=== PATIENT | female | born 1950 | race Caucasian/White ===

== ENCOUNTER → 2016-08-23 | Outpatient (CLI) | payer MEDICARE, OTHER ==
[~2016-08-23] MED LIST: ACETAMINOPHEN PO; ACETAMINOPHEN500 M3 PO; ACTOS PO; ACTOSPLUSMET PO; ALBUTEROL MININEB HHN; ALBUTEROL17 GM IH; ALBUTEROL17 GM INH; AMARYL PO; AMIODARONE HCL400 MG PO; AMIODARONE PO; ANTI-DIARRHEAL; ASPIRIN EC81 M1 PO; ASPIRIN PO; ASPIRIN81 M1 PO; ASPIRIN81 MG PO; ASPIRINEC PO; ATIVAN PO; ATIVAN2 M1 PO; ATIVAN2 MG PO; B-12250 MCG PO; BACTROBAN15 GM TOP; BIOTIN PO; BIOTIN300 MCG PO; CENTRUM COMPLE1 EACH PO; COMBIVENT INH14.7 GM INH; COREG PO; COUMADIN5 MG PO; COUMADIN7.5 MG PO; CROMOLYN SODIUM10 ML OU; CYMBALTA PO; CYMBALTA30 MG PO; DARVOCET-N 1001 TAB PO; DDAVP0.2 M1 PO; DESMOPRESSIN A0.2 MG PO; DETROL PO; DICYCLOMINE HCL20 MG PO; DIOVAN HCT 160-1 TAB PO; DIOVAN PO; DIOVAN160 MG PO; DIOVAN320 MG PO; DITROPAN PO; DOXEPIN HCL100 MG PO; DOXEPIN PO; DOXYCYCLINE150 MG PO; ENABLEX15 MG PO; FLOVENT HFA12 GM INH; GLUCOTROL PO; HUMIBID L.1 TAB.SR . PO; HUMULIN 70/30 V10 ML SUBQ; HYDROCODON-ACE1 EAC1 PO; IBUPROFEN PO; IMMODIUM1 MG/5 ML PO; IMODIUM2 MG PO; INDERAL LA160 MG PO; JANUVIA PO; KEFLEX PO; LANSOPRAZOLE30 M1 PO; LEVAQUIN PO; LEVAQUIN750 MG PO; LEVSIN PO; LIPITOR PO; LIPITOR40 MG PO; LOMOTIL TABLET1 TAB; LOMOTIL TABLET1 TAB PO; LOPRESSOR PO; LORTAB 5/500 TA1 TA1 PO; LORTAB 5/500 TA1 TA2 PO; LOTREL 10-40 M1 EACH PO; LOTREL 10/20 MG1 CAP PO; LOTREL 10/40 MG1 CAP PO; LOTREL 10/40 PO; LYRICA PO; METFORMIN PO; MULTI-VITAMIN1 TAB PO; NABUMETONE PO; NABUMETONE500 MG PO; NITROGLYCERIN0.4 MG SL; NIZORAL 2% CREA15 GM TOP; NOVOLIN 70/30 V10 M1 INJ; NOVOLIN 70/30 V10 M1 SQ; NOVOLIN 70/30 V10 M1 SUBQ; NOVOLOG100 U/ML SUBQ; NOVOLOG7030 SUBQ; PREDNISONE PO; PREDNISONE10 MG PO; PREMARIN PO; PREVACID PO; PREVACID15 M1 PO; PROAIR HFA8.5 GM IH; PROAIR HFA8.5 GM INH; PROPRANOLOL HC160 MG PO; PROPRANOLOL PO; PROTONIX PO; RELAFEN500 MG PO; RISACAL-D TABL1 EACH PO; SINGULAIR PO; SPIRIVA18 MCG INH; THERATEARS; VESICARE PO; VESICARE5 MG PO; VICODIN 5/500 T1 TAB PO; VITAMIN D 4001 UDTAB PO; ZESTRIL40 MG PO; [UNRECOGNIZED DRUG - OTHER]
--- NOTE | ~2016-08-23 | ST ---
Unit #: [id number] #: [id number] Patient: GEORGETTE HARRIS [id number] [address] [address] [id number] O MR#: [id number] NAME: GEORGETTE HARRIS : 1950 SEX: F STUDY DATE/TIME: 08/23/2016 UNIT: CN ROOM: STUDY DESCRIPTION: Cardiac stress test. Attending Physician: Generic Doctor Not In System Referring Physician: Generic Doctor Not In System Primary Care Physician: Seferino Zapata D.O. CARDIOLOGY REPORT EXAM Cardiac stress test. PROCEDURE Baseline EKG normal sinus rhythm. Nonspecific ST-T changes. Resting heart rate 74 per minute, blood pressure 152/100. This 66-year-old patient received 0.4 mg of Lexiscan intravenously. During the test no ischemic changes noted. No arrhythmias noted. Blood pressure was stable. IMPRESSION 1. Nondiagnostic EKG during Lexiscan. 2. No arrhythmias noted. 3. Stable blood pressure during the test. 4. Correlate with Cardiolite study. Dictated by... Markus Desir/candy TD: 08/23/2016 14:13 JOB #: [id number] CARDIOLOGY REPORT Page 1 of 1 X Daphne Underwood MD CARDIOLOGY REPORT
--- NOTE | ~2016-08-23 | TH ---
Unit #: [id number] #: [id number] Patient: GEORGETTE HARRIS [id number] [address] [address] [id number] O MR#: [id number] NAME: GEORGETTE HARRIS : 1950 SEX: F STUDY DATE/TIME: 08/23/2016 UNIT: [facility] ROOM: STUDY DESCRIPTION: Cardiolite imaging Attending Physician: Generic Doctor Not In System Referring Physician: Generic Doctor Not In System Primary Care Physician: Seferino Zapata D.O. CARDIOLOGY REPORT EXAM Cardiolite imaging. PROCEDURE This 66-year-old patient received 0.4 mg of Lexiscan intravenously, followed by 31.8 mCi of technetium 99m Cardiolite and images were obtained according to the standard SPECT protocol. For rest images 10.5 mCi of Cardiolite were injected. Images were reviewed in both phases. FINDINGS Overall study quality is excellent. Left ventricular cavity size is normal in both images. There is no lung activity. Right ventricle is normal. Rotating raw data showed no significant artifact, soft tissue attenuation or GI uptake. Review of SPECT images showed moderate decrease in the radiotracer concentration in a small to medium sized anteroapical segment in the stress images. In the rest images this defect is reversible. Gated images showed normal left ventricular wall thickening and wall motion with an estimated left ventricular ejection fraction of 61%. IMPRESSION 1. Myocardial perfusion imaging is abnormal. 2. Intermediate likelihood of a small to medium sized anteroapical ischemia. 3. Normal left ventricular dimensions. 4. Normal systolic left ventricular function with an estimated left ventricular ejection fraction of 61%. Dictated by... Markus Desir/candy TD: 08/23/2016 14:16 JOB #: [id number] Unit #: [id number] #: [id number] Patient: GEORGETTE HARRIS CARDIOLOGY REPORT Page 1 of 1 X Daphne Underwood MD CARDIOLOGY REPORT
== END | disposition home or self-care (01) ==
LOC: CNUC 08:48
DX: I48.91 Unspecified atrial fibrillation (principal); I10 Essential (primary) hypertension; I25.10 Atherosclerotic heart disease of native coronary artery without angina pectoris; E66.01 Morbid (severe) obesity due to excess calories; E78.5 Hyperlipidemia, unspecified; R94.31 Abnormal electrocardiogram [ECG] [EKG]; R06.02 Shortness of breath
CPT/HCPCS: 78452; 93017; 93306; A9500; J2785